=== PATIENT | female | born 1965 | race Caucasian/White ===

== ENCOUNTER 2023-01-08 13:52 | Inpatient (IN) | payer OTHER ==
[~2023-01-08] VITALS: Ht 182.9 cm; Wt 81.6 kg
[2023-01-08 13:54] VITALS: BP 118/74; PULSE 104; RESP 15; TEMP 98.4; O2SAT 97
[2023-01-08] MEDS ORDERED: NACL 0.9% 2,000 ML IV ONE (14:10)
[2023-01-08] MEDS ORDERED: HALOPERIDOL IM 5 MG/ML VIAL IM ONE (14:25)
[2023-01-08] MEDS ORDERED: cefTRIAXone 1,000 MG VIAL ONE (16:22)
[2023-01-08 16:24] LABS: BASOPHILS # (AUTO) 0.1 K/uL (0.00-0.22); BASOPHILS % (AUTO) 0.6 % (0.0-2.0); EOSINOPHILS # (AUTO) 0.1 K/uL (0-0.4); EOSINOPHILS % (AUTO) 1.3 % (0.0-4.0); HEMATOCRIT 37.9 % (36-48); HEMOGLOBIN 13.1 g/dL (12.0-16.0); LYMPHOCYTES # (AUTO) 1.7 K/uL (2.5-16.5); LYMPHOCYTES % (AUTO) 17.9 % (20.5-51.1); MEAN CORPUSCULAR HEMOGLOBIN 30 pg (27-31); MEAN CORPUSCULAR HGB CONC 35 g/dL (33-37); MEAN CORPUSCULAR VOLUME 85.7 fL (80-94); MONOCYTES # (AUTO) 0.5 K/uL (0.8-1.0); MONOCYTES % (AUTO) 5.5 % (1.7-9.3); NEUTROPHILS # (AUTO) 6.9 K/uL (1.8-7.7); NEUTROPHILS % (AUTO) 74.7 % (42.2-75.2); PLATELET COUNT (AUTO) 291 K/uL (140-450); RED BLOOD CELL COUNT(AUTO) 4.42 MIL/uL (4.20-5.40); RED CELL DISTRIBUTION WIDTH 12.8 % (11.6-13.7); WHITE BLOOD COUNT (AUTO) 9.2 K/uL (4.8-10.8)
[2023-01-08 16:37] LABS: INR 1.11 (0.8-1.2); PROTHROMBIN TIME 11.5 secs (10.8-13.4)
[2023-01-08 16:41] LABS: ALBUMIN 3.5 g/dL (3.4-5.0); ANION GAP 13.2 (8-16); CALCIUM 9.4 mg/dL (8.5-10.1); CARBON DIOXIDE 28.4 mmol/L (21-32); CREATININE 0.6 mg/dL (0.6-1.3); POTASSIUM 3.6 mmol/L (3.5-5.1); TOTAL BILIRUBIN 0.6 mg/dL (0.0-1.0); TOTAL PROTEIN, SERUM 6.8 g/dL (6.4-8.2)
[2023-01-08 16:43] LABS: CREATINE KINASE, TOTAL 179 U/L (26-192)
[2023-01-08 16:45] LABS: LACTIC ACID 2.1 mmol/L (0.4-2.0)
[2023-01-08 16:57] LABS: SALICYLATE < 2.8 mg/dL (2.8-20.0)
[2023-01-08 16:58] LABS: ACETAMINOPHEN < 0.5 ug/ml (10-30)
[2023-01-08 17:55] LABS: BILIRUBIN,URINE NEGATIVE (NEGATIVE); BLOOD, URINE 3+ (NEGATIVE); COLOR,URINE YELLOW (YELLOW); LEUKOCYTE ESTERASE ,URINE 2+ (NEGATIVE); NITRITE, URINE POSITIVE (NEGATIVE); PH,URINE 7.5 (5.0-9.0); PROTEIN,URINE 3+ (NEGATIVE); UGLUCOSE NEGATIVE (NEGATIVE)
[2023-01-08 17:57] LABS: APPEARANCE,URINE CLOUDY (CLEAR)
[2023-01-08 18:02] LABS: BACTERIA,URINE >30 (MANY) /HPF (None Seen); SQUAMOUS EPITHELIAL CELL,UR 0-3 (FEW) /LPF (0-3 (FEW)); URINE AMORPHOUS PHOSPHATES 1+ /HPF (None Seen)
[2023-01-08 18:07] LABS: AMPHETAMINE, URINE NEGATIVE ng/ml (NEG <=1000); BARBITURATE, URINE NEGATIVE ng/ml (NEG <=200); BENZODIAZEPINE, URINE POSITIVE ng/mL (NEG <=200); CANNABINOID, URINE NEGATIVE ng/mL (NEG <=50); COCAINE, URINE NEGATIVE ng/mL (NEG <=300); PHENCYCLIDINE SCREEN,URINE NEGATIVE ng/mL (NEG <=25)
[2023-01-08 18:08] LABS: OPIATE, URINE NEGATIVE ng/mL (NEG <=2000)
[2023-01-08] MEDS ORDERED: MAGNESIUM OXIDE 400 MG TAB PO PRN (19:10)
[2023-01-08] MEDS ORDERED: POTASSIUM CHLORIDE 10 MEQ TABER PO PRN (19:10)
[2023-01-08] MEDS ORDERED: MAG SULF 2000 MG/WATER PREMIX 50 ML IV PRN (19:10)
[2023-01-08] MEDS ORDERED: HYDROcodone/APAP 5/325 MG 1 TAB TAB PO PRN (19:10)
[2023-01-08] MEDS: NACL 0.9% 1,000 ML IV SCH (19:10)
[2023-01-08] MEDS ORDERED: ACETAMINOPHEN 325 MG TAB PO PRN (19:10)
[2023-01-08] MEDS ORDERED: MORPHINE SULFATE 2 MG/ML SYR IVP PRN (19:10)
[2023-01-08] MEDS ORDERED: ONDANSETRON 4 MG/2 ML VIAL IVP PRN (19:10)
[2023-01-08] MEDS ORDERED: KCL 20 MEQ IN 100 mL PREMIX 200 ML IV PRN (19:10)
[2023-01-08] MEDS ORDERED: CHOL500040 PO (20:47)
[2023-01-08] MEDS ORDERED: LORA-476 PO (20:47)
[2023-01-08] MEDS ORDERED: LACT-103 PO (20:47)
[2023-01-08] MEDS ORDERED: TAMS0.4C96 PO (20:47)
[2023-01-08] MEDS ORDERED: OLAN2.5T1 PO (20:47)
[2023-01-08] MEDS ORDERED: SERT50TA PO (20:47)
[2023-01-09 00:10] VITALS: O2SAT 96
[2023-01-09] MEDS ORDERED: GLUCAGON 1 MG VIAL IVP ONE ×2 (03:35→03:50)
[2023-01-09 03:45] VITALS: O2SAT 96
[2023-01-09 05:47] VITALS: O2SAT 96
[2023-01-09 08:30] VITALS: PULSE 65; PULSE 68; RESP 20; O2SAT 97
[2023-01-09] MEDS: NACL 0.9% 1,000 ML IV SCH ×2 (09:00→15:46)
[2023-01-09] MEDS ORDERED: CHOLECALCIFEROL PO SCH (10:45)
[2023-01-09] MEDS ORDERED: LORazepam 1 MG TAB PO PRN (10:45)
[2023-01-09 12:00] VITALS: PULSE 68; TEMP 97.7
[2023-01-09 20:00] VITALS: BP 118/74; PULSE 68; RESP 18; TEMP 98.5; O2SAT 98
[2023-01-09] MEDS: OLANZapine 2.5 MG TAB PO SCH (21:30)
[2023-01-10] VITALS: BP 118/74; PULSE 68; RESP 18; TEMP 98.5; O2SAT 98
[2023-01-10 04:00] VITALS: BP 118/74; PULSE 68; RESP 18; TEMP 98.5; O2SAT 98
[2023-01-10 06:56] LABS: BASOPHILS % (AUTO) 0.7 % (0.0-2.0); EOSINOPHILS # (AUTO) 0.4 K/uL (0-0.4); EOSINOPHILS % (AUTO) 5.6 % (0.0-4.0); HEMATOCRIT 33.2 % (36-48); HEMOGLOBIN 11.6 g/dL (12.0-16.0); LYMPHOCYTES % (AUTO) 31.9 % (20.5-51.1); MEAN CORPUSCULAR HEMOGLOBIN 30 pg (27-31); MEAN CORPUSCULAR HGB CONC 35 g/dL (33-37); MEAN CORPUSCULAR VOLUME 86.7 fL (80-94); MONOCYTES # (AUTO) 0.3 K/uL (0.8-1.0); MONOCYTES % (AUTO) 5.4 % (1.7-9.3); NEUTROPHILS # (AUTO) 3.5 K/uL (1.8-7.7); NEUTROPHILS % (AUTO) 56.4 % (42.2-75.2); PLATELET COUNT (AUTO) 235 K/uL (140-450); RED BLOOD CELL COUNT(AUTO) 3.83 MIL/uL (4.20-5.40); RED CELL DISTRIBUTION WIDTH 12.7 % (11.6-13.7); WHITE BLOOD COUNT (AUTO) 6.3 K/uL (4.8-10.8)
[2023-01-10 08:00] VITALS: BP 104/59; PULSE 98; RESP 18; TEMP 36.8; O2SAT 96
[2023-01-10 08:04] LABS: ANION GAP 13.7 (8-16); CALCIUM 8.7 mg/dL (8.5-10.1); CARBON DIOXIDE 27.1 mmol/L (21-32); CREATININE 0.4 mg/dL (0.6-1.3); MAGNESIUM 1.9 mg/dL (1.8-2.4); POTASSIUM 3.8 mmol/L (3.5-5.1); TOTAL BILIRUBIN 0.4 mg/dL (0.0-1.0); TOTAL PROTEIN, SERUM 5.9 g/dL (6.4-8.2)
[2023-01-10] MEDS ORDERED: NON-FORMULARY ITEM (Lactulose 30 ML) PO SCH (09:00)
[2023-01-10] MEDS: NACL 0.9% 1,000 ML IV SCH ×2 (09:53→21:10)
[2023-01-10] MEDS: SERTRALINE 50 MG TAB PO SCH (09:57)
[2023-01-10] MEDS: OLANZapine 2.5 MG TAB PO SCH ×2 (09:57→20:44)
[2023-01-10] MEDS: CHOLECALCIFEROL 1,000 IU TAB PO SCH (09:58)
[2023-01-10] MEDS: TAMSULOSIN 0.4 MG CAP PO SCH (09:59)
[2023-01-10] MEDS: LACTULOSE 20 GM/30 ML UDC PO SCH (09:59)
[2023-01-10 16:00] VITALS: BP 105/69; PULSE 90; RESP 18; TEMP 98; O2SAT 96
[2023-01-10 20:00] VITALS: BP 107/44; PULSE 60; RESP 18; TEMP 99.5; O2SAT 93
[2023-01-11 06:50] LABS: BASOPHILS % (AUTO) 0.7 % (0.0-2.0); EOSINOPHILS # (AUTO) 0.3 K/uL (0-0.4); EOSINOPHILS % (AUTO) 4.8 % (0.0-4.0); HEMATOCRIT 34.1 % (36-48); HEMOGLOBIN 11.8 g/dL (12.0-16.0); LYMPHOCYTES # (AUTO) 1.7 K/uL (2.5-16.5); LYMPHOCYTES % (AUTO) 29.6 % (20.5-51.1); MEAN CORPUSCULAR HEMOGLOBIN 30 pg (27-31); MEAN CORPUSCULAR HGB CONC 35 g/dL (33-37); MEAN CORPUSCULAR VOLUME 86.6 fL (80-94); MONOCYTES # (AUTO) 0.4 K/uL (0.8-1.0); MONOCYTES % (AUTO) 6.3 % (1.7-9.3); NEUTROPHILS # (AUTO) 3.4 K/uL (1.8-7.7); NEUTROPHILS % (AUTO) 58.6 % (42.2-75.2); PLATELET COUNT (AUTO) 233 K/uL (140-450); RED BLOOD CELL COUNT(AUTO) 3.94 MIL/uL (4.20-5.40); RED CELL DISTRIBUTION WIDTH 12.7 % (11.6-13.7); WHITE BLOOD COUNT (AUTO) 5.9 K/uL (4.8-10.8)
[2023-01-11 07:32] LABS: ANION GAP 13.1 (8-16); CALCIUM 8.4 mg/dL (8.5-10.1); CREATININE 0.4 mg/dL (0.6-1.3); MAGNESIUM 1.7 mg/dL (1.8-2.4); POTASSIUM 4.1 mmol/L (3.5-5.1); TOTAL BILIRUBIN 0.3 mg/dL (0.0-1.0)
[2023-01-11 08:00] VITALS: BP 106/59; PULSE 60; PULSE 98; RESP 18; TEMP 98.9; O2SAT 96; O2SAT 99
[2023-01-11] MEDS: TAMSULOSIN 0.4 MG CAP PO SCH (08:00)
[2023-01-11] MEDS: OLANZapine 2.5 MG TAB PO SCH (09:00)
[2023-01-11] MEDS: CHOLECALCIFEROL 1,000 IU TAB PO SCH (09:00)
[2023-01-11] MEDS: LACTULOSE 20 GM/30 ML UDC PO SCH (09:00)
[2023-01-11] MEDS: SERTRALINE 50 MG TAB PO SCH (09:00)
[2023-01-11] MEDS: NACL 0.9% 1,000 ML IV SCH (09:40)
[2023-01-11] MEDS ORDERED: CEFD300C3 PO (13:27)
[2023-01-11 15:52] VITALS: BP 106/59; PULSE 99; RESP 18; TEMP 98.9
== END 2023-01-11 19:18 | DRG 871 ==
LOC: MED 13:52 → MTU 19:11
PROVIDERS: ADMIT Student in an Organized Health Care Education/Training Program; ATTEND Student in an Organized Health Care Education/Training Program
DX: A41.9 Sepsis, unspecified organism (principal); G93.41 Metabolic encephalopathy; N39.0 Urinary tract infection, site not specified; F20.9 Schizophrenia, unspecified; E86.1 Hypovolemia; F32.A Depression, unspecified; I10 Essential (primary) hypertension; E78.5 Hyperlipidemia, unspecified
CPT/HCPCS: 36415; 70450; 71045; 80053; 80305; 81001; 82550; 82553; 83605; 83735; 83880; 84484; 85025; 85610; 85730; 87040; 87086; 93005; 96365; 96372; 96375; 97163-GP; 99285; G0480; J0696; J1610; J1630; J1644; J7060

== ENCOUNTER 2023-08-16 14:36 | Inpatient (IN) | payer OTHER ==
[~2023-08-16] VITALS: Ht 167.6 cm; Wt 59.0 kg
[~2023-08-16 14:36] MED LIST: CEFD300C3 PO; CHOL500040 PO; LACT-191 PO; LORA-476 PO; OLAN2.5T1 PO; SERT50TA PO; TAMS0.4C96 PO
[2023-08-16 14:45] VITALS: BP 116/60; PULSE 85; RESP 16; TEMP 99.6; O2SAT 96
[2023-08-16 15:20] VITALS: O2SAT 95
[2023-08-16 15:49] LABS: BASOPHILS # (AUTO) 0.1 K/uL (0.00-0.22); BASOPHILS % (AUTO) 0.9 % (0.0-2.0); EOSINOPHILS # (AUTO) 0.1 K/uL (0-0.4); EOSINOPHILS % (AUTO) 1.2 % (0.0-4.0); HEMATOCRIT 34.5 % (36-48); HEMOGLOBIN 12.1 g/dL (12.0-16.0); LYMPHOCYTES # (AUTO) 1.7 K/uL (2.5-16.5); LYMPHOCYTES % (AUTO) 20.6 % (20.5-51.1); MEAN CORPUSCULAR HEMOGLOBIN 31 pg (27-31); MEAN CORPUSCULAR HGB CONC 35 g/dL (33-37); MEAN CORPUSCULAR VOLUME 87.3 fL (80-94); MONOCYTES # (AUTO) 0.5 K/uL (0.8-1.0); MONOCYTES % (AUTO) 5.8 % (1.7-9.3); NEUTROPHILS # (AUTO) 5.8 K/uL (1.8-7.7); NEUTROPHILS % (AUTO) 71.5 % (42.2-75.2); PLATELET COUNT (AUTO) 286 K/uL (140-450); RED BLOOD CELL COUNT(AUTO) 3.95 MIL/uL (4.20-5.40); RED CELL DISTRIBUTION WIDTH 13.2 % (11.6-13.7); WHITE BLOOD COUNT (AUTO) 8.1 K/uL (4.8-10.8)
[2023-08-16 16:02] LABS: ANION GAP 9.8 (8-16); CALCIUM 8.3 mg/dL (8.5-10.1); CREATININE 0.5 mg/dL (0.6-1.3); POTASSIUM 3.8 mmol/L (3.5-5.1)
[2023-08-16 16:04] LABS: INR 1.03 (0.8-1.2); PARTIAL THROMBOPLASTIN TIME 26.5 secs (22-35.6); PROTHROMBIN TIME 10.8 secs (10.8-13.4)
[2023-08-16 16:11] LABS: LACTIC ACID 0.8 mmol/L (0.4-2.0)
[2023-08-16 16:15] LABS: ALANINE AMINOTRANSFERASE 14 U/L (12-78); ALBUMIN 3.4 g/dL (3.4-5.0); ALKALINE PHOSPHATASE 99 U/L (50-136); ASPARTATE AMINOTRANSFERASE 9 U/L (15-37); BILIRUBIN,DIRECT 0.2 mg/dL (0.0-0.3); CREATINE KINASE, TOTAL 39 U/L (26-192); LIPASE 51 U/L (16-77); THYROID STIMULATING HORMONE 1.09 uIU/mL (0.34-3.74); TOTAL BILIRUBIN 0.6 mg/dL (0.0-1.0); TOTAL PROTEIN, SERUM 6.6 g/dL (6.4-8.2)
[2023-08-16] MEDS: OLANZapine 10 MG VIAL IM ONE (16:20)
[2023-08-16] MEDS: NACL 0.9% 1,000 ML IV ONE (17:24)
[2023-08-16] MEDS: SODIUM PHOSPHATE 118 ML ENEM RC ONE (17:47)
[2023-08-16 17:48] VITALS: O2SAT 97
[2023-08-16] MEDS ORDERED: cefTRIAXone 1,000 MG VIAL ONE (17:57)
[2023-08-16] MEDS: metroNIDAZOLE 500 MG/NS PREMIX 100 ML IV ONE (18:02)
[2023-08-16 18:05] LABS: BILIRUBIN,URINE NEGATIVE (NEGATIVE); BLOOD, URINE NEGATIVE (NEGATIVE); COLOR,URINE YELLOW (YELLOW); LEUKOCYTE ESTERASE ,URINE TRACE (NEGATIVE); NITRITE, URINE POSITIVE (NEGATIVE); PROTEIN,URINE NEGATIVE (NEGATIVE); UGLUCOSE NEGATIVE (NEGATIVE)
[2023-08-16 18:07] LABS: APPEARANCE,URINE SLIGHTLY HAZY (CLEAR)
[2023-08-16 18:09] LABS: BACTERIA,URINE 2+ /HPF (None Seen); MUCUS,URINE None Seen /LPF (None Seen); RBC,URINE 0 /HPF (0-5); SQUAMOUS EPITHELIAL CELL,UR 4-10 (MOD) /LPF (0-3 (FEW))
[2023-08-16] MEDS ORDERED: HYDROcodone/APAP 5/325 MG 1 TAB TAB PO PRN (19:35)
[2023-08-16] MEDS ORDERED: hydrALAZINE 20 MG/ML VIAL IVP PRN (19:35)
[2023-08-16] MEDS ORDERED: ONDANSETRON 4 MG/2 ML VIAL IVP PRN (19:35)
[2023-08-16] MEDS: NACL 0.9% 1,000 ML IV SCH (20:14)
[2023-08-16 20:19] VITALS: O2SAT 99
[2023-08-16] MEDS: SENNA 8.6 MG TAB PO SCH (20:56)
[2023-08-16] MEDS: OLANZapine 2.5 MG TAB PO SCH (21:00)
[2023-08-16] MEDS ORDERED: OLANZapine 5 MG TAB ONE (22:26)
[2023-08-16] MEDS ORDERED: CRUSHER, PILL MC ONE (22:39)
[2023-08-17 00:17] VITALS: O2SAT 99
[2023-08-17 03:46] VITALS: O2SAT 99
[2023-08-17 07:08] LABS: BASOPHILS % (AUTO) 0.3 % (0.0-2.0); EOSINOPHILS # (AUTO) 0.2 K/uL (0-0.4); EOSINOPHILS % (AUTO) 1.8 % (0.0-4.0); HEMATOCRIT 34.3 % (36-48); HEMOGLOBIN 11.9 g/dL (12.0-16.0); LYMPHOCYTES # (AUTO) 1.6 K/uL (2.5-16.5); LYMPHOCYTES % (AUTO) 15.6 % (20.5-51.1); MEAN CORPUSCULAR HEMOGLOBIN 30 pg (27-31); MEAN CORPUSCULAR HGB CONC 35 g/dL (33-37); MEAN CORPUSCULAR VOLUME 87.6 fL (80-94); MONOCYTES # (AUTO) 0.4 K/uL (0.8-1.0); MONOCYTES % (AUTO) 4.2 % (1.7-9.3); NEUTROPHILS # (AUTO) 7.8 K/uL (1.8-7.7); NEUTROPHILS % (AUTO) 78.1 % (42.2-75.2); PLATELET COUNT (AUTO) 248 K/uL (140-450); RED BLOOD CELL COUNT(AUTO) 3.92 MIL/uL (4.20-5.40); RED CELL DISTRIBUTION WIDTH 13.1 % (11.6-13.7)
[2023-08-17 08:00] LABS: ANION GAP 10.7 (8-16); CARBON DIOXIDE 27.1 mmol/L (21-32); CREATININE 0.5 mg/dL (0.6-1.3); POTASSIUM 3.8 mmol/L (3.5-5.1); TOTAL BILIRUBIN 0.8 mg/dL (0.0-1.0)
[2023-08-17] MEDS: DOCUSATE SODIUM 100 MG GELCAP PO SCH (09:00)
[2023-08-17] MEDS: PANTOPRAZOLE 40 MG INJ VIAL IVP SCH (10:04)
[2023-08-17] MEDS: TAMSULOSIN 0.4 MG CAP PO SCH (10:05)
[2023-08-17] MEDS: SERTRALINE 50 MG TAB PO SCH (10:05)
[2023-08-17] MEDS: LACTULOSE 20 GM/30 ML UDC PO SCH (14:52)
[2023-08-17 16:00] VITALS: BP 102/50; PULSE 57; RESP 18; TEMP 98.3; O2SAT 99
[2023-08-17 20:00] VITALS: BP 94/49; PULSE 61; RESP 18; TEMP 98.6; O2SAT 98
[2023-08-17] MEDS: ZOLPIDEM 5 MG TAB PO PRN (22:01)
[2023-08-18] VITALS: PULSE 68
[2023-08-18 04:00] VITALS: BP 112/74; PULSE 83; RESP 20; TEMP 97.7; O2SAT 95
[2023-08-18 06:07] LABS: BASOPHILS % (AUTO) 0.3 % (0.0-2.0); EOSINOPHILS # (AUTO) 0.1 K/uL (0-0.4); EOSINOPHILS % (AUTO) 1.9 % (0.0-4.0); HEMATOCRIT 31.8 % (36-48); HEMOGLOBIN 11.1 g/dL (12.0-16.0); LYMPHOCYTES # (AUTO) 1.3 K/uL (2.5-16.5); MEAN CORPUSCULAR HEMOGLOBIN 30 pg (27-31); MEAN CORPUSCULAR HGB CONC 35 g/dL (33-37); MEAN CORPUSCULAR VOLUME 87.1 fL (80-94); MONOCYTES # (AUTO) 0.4 K/uL (0.8-1.0); MONOCYTES % (AUTO) 4.9 % (1.7-9.3); NEUTROPHILS # (AUTO) 5.5 K/uL (1.8-7.7); NEUTROPHILS % (AUTO) 74.9 % (42.2-75.2); PLATELET COUNT (AUTO) 225 K/uL (140-450); RED BLOOD CELL COUNT(AUTO) 3.65 MIL/uL (4.20-5.40); RED CELL DISTRIBUTION WIDTH 12.9 % (11.6-13.7); WHITE BLOOD COUNT (AUTO) 7.4 K/uL (4.8-10.8)
[2023-08-18 06:32] LABS: ALBUMIN 2.8 g/dL (3.4-5.0); CALCIUM 7.8 mg/dL (8.5-10.1); CARBON DIOXIDE 25.6 mmol/L (21-32); CREATININE 0.5 mg/dL (0.6-1.3); POTASSIUM 3.6 mmol/L (3.5-5.1); TOTAL BILIRUBIN 0.8 mg/dL (0.0-1.0); TOTAL PROTEIN, SERUM 5.9 g/dL (6.4-8.2)
[2023-08-18 08:00] VITALS: BP 120/71; PULSE 64; RESP 18; TEMP 98.1; O2SAT 98
[2023-08-18] MEDS: MEROPENEM 1,000 MG in NACL 0.9% 50 ML IV SCH (12:31)
[2023-08-18 16:00] VITALS: BP 117/74; PULSE 62; RESP 18; TEMP 97.6; O2SAT 98
[2023-08-18 20:00] VITALS: BP 116/72; PULSE 80; RESP 18; TEMP 97.6; O2SAT 96
[2023-08-19] VITALS: BP 116/72; PULSE 80; RESP 18; TEMP 97.6; O2SAT 96
[2023-08-19 04:00] VITALS: BP 124/66; PULSE 70; RESP 18; TEMP 98.2; O2SAT 97
[2023-08-19 05:52] LABS: BASOPHILS % (AUTO) 0.5 % (0.0-2.0); EOSINOPHILS # (AUTO) 0.1 K/uL (0-0.4); EOSINOPHILS % (AUTO) 1.2 % (0.0-4.0); HEMATOCRIT 34.7 % (36-48); HEMOGLOBIN 12.4 g/dL (12.0-16.0); LYMPHOCYTES # (AUTO) 1.5 K/uL (2.5-16.5); LYMPHOCYTES % (AUTO) 18.6 % (20.5-51.1); MEAN CORPUSCULAR HEMOGLOBIN 31 pg (27-31); MEAN CORPUSCULAR HGB CONC 36 g/dL (33-37); MEAN CORPUSCULAR VOLUME 86.3 fL (80-94); MONOCYTES # (AUTO) 0.4 K/uL (0.8-1.0); MONOCYTES % (AUTO) 5.1 % (1.7-9.3); NEUTROPHILS % (AUTO) 74.6 % (42.2-75.2); PLATELET COUNT (AUTO) 271 K/uL (140-450); RED BLOOD CELL COUNT(AUTO) 4.02 MIL/uL (4.20-5.40); RED CELL DISTRIBUTION WIDTH 12.8 % (11.6-13.7); WHITE BLOOD COUNT (AUTO) 8.1 K/uL (4.8-10.8)
[2023-08-19 06:42] LABS: ALBUMIN 3.2 g/dL (3.4-5.0); ANION GAP 11.8 (8-16); CALCIUM 8.3 mg/dL (8.5-10.1); CARBON DIOXIDE 27.7 mmol/L (21-32); CREATININE 0.5 mg/dL (0.6-1.3); POTASSIUM 3.5 mmol/L (3.5-5.1); TOTAL BILIRUBIN 0.8 mg/dL (0.0-1.0); TOTAL PROTEIN, SERUM 6.7 g/dL (6.4-8.2)
[2023-08-19 08:00] VITALS: BP 98/48; PULSE 90; RESP 19; TEMP 97.8; O2SAT 100
[2023-08-19] MEDS: DOCUSATE 100 MG/10 ML UDC PO SCH (10:40)
[2023-08-19 12:00] VITALS: BP 98/48; PULSE 90; RESP 19; TEMP 97.8; O2SAT 100
[2023-08-19] MEDS: LORazepam 1 MG TAB PO PRN (12:57)
[2023-08-19 16:00] VITALS: BP 99/62; PULSE 64; RESP 19; TEMP 96.1; O2SAT 97
[2023-08-19] MEDS ORDERED: MERO1VIA15 IV (16:42)
[2023-08-20] MEDS ORDERED: DOCUSATE 100 MG/10 ML UDC GT SCH (09:00)
== END 2023-08-19 18:28 | DRG 388 ==
LOC: MED 14:36 → MTU 19:48
PROVIDERS: ADMIT Student in an Organized Health Care Education/Training Program; ATTEND Student in an Organized Health Care Education/Training Program
DX: K56.41 Fecal impaction (principal); G93.41 Metabolic encephalopathy; N39.0 Urinary tract infection, site not specified; E44.1 Mild protein-calorie malnutrition; F32.A Depression, unspecified; K52.89 Other specified noninfective gastroenteritis and colitis; Z79.899 Other long term (current) drug therapy; Z68.21 Body mass index [BMI] 21.0-21.9, adult
CPT/HCPCS: 36415; 71045; 80048; 80053; 80076; 81001; 82550; 83605; 83690; 83880; 84443; 84484; 85025; 85610; 85730; 87040; 87081; 87086; 87186; 93005; 96361; 96365; 96368; 96372; 99285; C9113; J0696; J2185; J3490; J7060